=== PATIENT | female | born 1990 | race African-American/Black ===

== ENCOUNTER → 2016-03-24 | Outpatient (CLI) | payer OTHER ==
[2016-01-05 11:35] VITALS: BP 120/60
[~2016-03-24] MED LIST: ACET325T9 PO; CEPH-264 PO; METR500T PO; NITR100C62 PO; PNV11TAB5 PO
== END | disposition home or self-care (01) ==
LOC: SPEC 12:31
PROVIDERS: ATTEND Nurse Practitioner Women's Health
DX: Z36 Encounter for antenatal screening of mother (principal)
CPT/HCPCS: 36415

== ENCOUNTER → 2016-03-25 | Outpatient (CLI) | payer OTHER ==
[2016-01-05 11:35] VITALS: BP 120/60
--- NOTE | 2016-03-25 13:05 | KCIC ---
OB ultrasound Indication: Reason For Study Reason: size of fetus inconsistent with dates / Spl. Instructions: / History: Technique: Multiple real-time grayscale sonographic images were obtained over the pelvis. Findings: Amniotic fluid index is within normal limits measuring 13.4 centimeters. Cervix is within normal limits measuring 4.65 centimeters. There is a single intrauterine living fetus in the cephalic presentation with a heart rate of 160 beats per minute. Biparietal diameter measures 8.86 centimeters compatible with estimated gestational age 35 weeks 6 days. Head circumference measures 32.25 centimeters compatible with 36 weeks 3 days. Abdominal circumference measures 32.08 centimeters compatible with 36 weeks 0 days. Femur length measures 7.4 centimeters compatible with 37 weeks 6 days. Head circumference to abdominal circumference ratio is 1.01 which is within normal limits. Estimated weight is 2957 grams which is the 48th percentile. Estimated gestational age is 36 weeks 4 days with estimated date of delivery 04/18/2016. The placenta is right fundal with central cord insertion. The spine demonstrates normal morphology. The stomach, urinary bladder, and bilateral kidneys are identified. There are 2 upper and 2 lower extremities. A four-chamber heart is noted. Impression: Single intrauterine living fetus with estimated gestational age 36 weeks 4 days with estimated date of delivery 04/18/2016. Electronically signed by: Clarence Farnsworth (Mar 25, 2016 13:00:03)
== END | disposition home or self-care (01) ==
LOC: KCIC US 12:00
PROVIDERS: ATTEND Nurse Practitioner Women's Health
DX: O26.841 Uterine size-date discrepancy, first trimester (principal); Z3A.14 14 weeks gestation of pregnancy
CPT/HCPCS: 76805

== ENCOUNTER 2016-09-22 21:16 | Emergency (ER) | payer OTHER ==
[~2016-09-22] VITALS: Ht 162.6 cm; Wt 83.5 kg
[~2016-09-22 21:16] MED LIST changes: +DOCU-109 PO; +FERR325T72 PO; +IBUP-1060 PO
[2016-09-22] MEDS ORDERED: IPRATRPIUM/ALBUTEROL 0.5/2.5MG 3 ML NEBU. NEB ONE (23:00)
[2016-09-22] MEDS ORDERED: IV NORMAL SALINE 1000ML BAG 1,000 ML IV ONE (23:00)
[2016-09-22] MEDS ORDERED: diazePAM 5 MG TABLET PO ONE (23:00)
--- NOTE | 2016-09-22 23:13 | PHYS DOC ---
Past Medical History Past Medical History: Anxiety, Hypertension Past Surgical History: Other Additional Past Surgical Histo: I&D-BACK Alcohol Use: Occasionally Drug Use: None Adult General Chief Complaint Chief Complaint: SHORTNESS OF BREATH HPI HPI Patient is a 26 year old female with history of hypertension and anxiety presents today with multiple complaints. Patient is complaining of a 5 out of 10 generalized headache for the last 2 days. Patient is also complaining of nausea but no vomiting. Patient denies this being the worst headache in her life. She states she's had similar headaches before. Patient has taken Tylenol and ibuprofen with no relief. Patient is also complaining of shortness of breath that began this morning. She is a smoker. She is also on Depo shots. Patient is also complaining of right hand "shakiness" that has been going on and off throughout the day and worse this evening. Patient states she has anxiety but has never felt like this before. Patient denies any chest pain. Review of Systems Review of Systems Constitutional: Denies fever or chills [] Eyes: Denies change in visual acuity, redness, or eye pain [] HENT: Denies nasal congestion or sore throat [] Respiratory: shortness of breath [] Cardiovascular: No additional information not addressed in HPI [] GI: Denies abdominal pain, nausea, vomiting, bloody stools or diarrhea [] : Denies dysuria or hematuria [] Musculoskeletal: Denies back pain or joint pain [] Integument: Denies rash or skin lesions [] Neurologic: headache Endocrine: Denies polyuria or polydipsia [] pysch:shakiness Current Medications Current Medications Current Medications Medications (Trade) Dose Ordered Sig/Ruth Start Time Stop Time Status Last Admin Dose Admin Albuterol/ Ipratropium (Duoneb) 3 ml 1X ONCE 09/22/16 23:00 09/22/16 23:01 DC 09/22/16 23:59 3 ML Ceftriaxone Sodium 50 ml @ 100 mls/hr 1X ONCE 09/23/16 02:00 09/23/16 02:29 DC 09/23/16 02:04 100 MLS/HR Diazepam (Valium) 5 mg 1X ONCE 09/22/16 23:00 09/22/16 23:01 DC 09/23/16 00:00 5 MG Info (Do NOT chart on this entry -- for MONITORING) 1 each PRN DAILY PRN 09/23/16 01:30 09/25/16 01:29 Iohexol (Omnipaque 300 Mg/ml) 75 ml 1X ONCE 09/23/16 01:30 09/23/16 01:31 DC 09/23/16 01:50 75 ML Sodium Chloride 1,000 ml @ 1,000 mls/hr 1X ONCE 09/22/16 23:00 09/22/16 23:59 DC 09/23/16 00:01 1,000 MLS/HR Allergies Allergies Allergies Coded Allergies Type Severity Reaction Last Updated Verified No Known Drug Allergies 01/05/16 No Physical Exam Physical Exam Constitutional: Well developed, well nourished, no acute distress, non-toxic appearance. [] HENT: Normocephalic, atraumatic, bilateral external ears normal, oropharynx moist, no oral exudates, nose normal. [] Eyes: PERRLA, EOMI, conjunctiva normal, no discharge. [] Neck: Normal range of motion, no tenderness, supple, no stridor. [] Cardiovascular:Heart rate regular rhythm, no murmur [] Lungs & Thorax: Bilateral breath sounds clear to auscultation [] Abdomen: Bowel sounds normal, soft, no tenderness, no masses, no pulsatile masses. [] Skin: Warm, dry, no erythema, no rash. [] Back: No tenderness, no CVA tenderness. [] Extremities: No tenderness, no cyanosis, no clubbing, ROM intact, no edema. [] Neurologic: Alert and oriented X 3, normal motor function, normal sensory function, no focal deficits noted. Cranial nerves II-XII intact Psychologic: Affect normal, judgement normal, mood normal. Patient has tremors to the right upper extremity especially on holding items Current Patient Data Vital Signs Vital Signs Date Time Temp Pulse Resp B/P (MAP) Pulse Ox O2 Delivery O2 Flow Rate FiO2 09/23/16 00:30 79 18 123/83 (96) 100 Room Air 09/22/16 22:11 98.0 98.0 Lab Values Laboratory Tests Test 09/22/16 22:34 09/22/16 22:50 09/22/16 23:59 POC Urine HCG, Qualitative Hcg negative (Negative) Urine Collection Type Void Urine Color Yellow Urine Clarity Clear Urine pH 6.0 Urine Specific [place] 1.025 Urine Protein Negative mg/dL (NEG-TRACE) Urine Glucose (UA) Negative mg/dL (NEG) Urine Ketones (Stick) Negative mg/dL (NEG) Urine Blood Negative (NEG) Urine Nitrite Negative (NEG) Urine Bilirubin Negative (NEG) Urine Urobilinogen Dipstick 1.0 mg/dL (0.2 mg/dL) Urine Leukocyte Esterase Moderate (NEG) Urine RBC 0 /HPF (0-2) Urine WBC 1-4 /HPF (0-4) Urine Squamous Epithelial Cells Many /LPF Urine Bacteria Mod /HPF (0-FEW) Urine Mucus Marked /LPF Urine Opiates Screen Neg (NEG) Urine Methadone Screen Neg (NEG) Urine Barbiturates Neg (NEG) Urine Phencyclidine Screen Neg (NEG) Urine Amphetamine/Methamphetamine Neg (NEG) Urine Benzodiazepines Screen Neg (NEG) Urine Cocaine Screen Neg (NEG) Urine Cannabinoids Screen Neg (NEG) Urine Ethyl Alcohol Pos (NEG) White Blood Count 9.9 x10^3/uL (4.0-11.0) Red Blood Count 5.06 x10^6/uL (3.50-5.40) Hemoglobin 11.5 g/dL (12.0-15.5) L Hematocrit 36.4 % (36.0-47.0) Mean Corpuscular Volume 72 fL (79-100) L Mean Corpuscular Hemoglobin 23 pg (25-35) L Mean Corpuscular Hemoglobin Concent 32 g/dL (31-37) Red Cell Distribution Width 17.4 % (11.5-14.5) H Platelet Count 285 x10^3/uL (140-400) Neutrophils (%) (Auto) 35 % (31-73) Lymphocytes (%) (Auto) 57 % (24-48) H Monocytes (%) (Auto) 7 % (0-9) Eosinophils (%) (Auto) 1 % (0-3) Basophils (%) (Auto) 1 % (0-3) Neutrophils # (Auto) 3.5 x10^3uL (1.8-7.7) Lymphocytes # (Auto) 5.6 x10^3/uL (1.0-4.8) H Monocytes # (Auto) 0.7 x10^3/uL (0.0-1.1) Eosinophils # (Auto) 0.1 x10^3/uL (0.0-0.7) Basophils # (Auto) 0.1 x10^3/uL (0.0-0.2) Segmented Neutrophils % 34 % (35-66) L Lymphocytes % 61 % (24-48) H Monocytes % 4 % (0-10) Eosinophils % 1 % (0-5) Platelet Estimate Adequate (ADEQUATE) Hypochromasia Slight Poikilocytosis Slight Microcytosis Slight Prothrombin Time 12.5 SEC (11.7-14.0) Prothrombin Time INR 1.0 (0.8-1.1) PTT 26 SEC (24-38) D-Dimer (Grace) 1.56 ug/mlFEU (0.00-0.50) H Sodium Level 143 mmol/L (136-145) Potassium Level 3.8 mmol/L (3.5-5.1) Chloride Level 105 mmol/L (98-107) Carbon Dioxide Level 26 mmol/L (21-32) Anion Gap 12 (6-14) Blood Urea Nitrogen 13 mg/dL (7-20) Creatinine 0.9 mg/dL (0.6-1.0) Estimated GFR (Cockcroft-Gault) 92.3 Glucose Level 102 mg/dL (70-99) H Calcium Level 9.5 mg/dL (8.5-10.1) Magnesium Level 1.9 mg/dL (1.8-2.4) Creatine Kinase 164 U/L (26-192) Creatine Kinase MB (Mass) < 0.5 ng/mL (0.0-3.6) Creatine Kinase MB Relative Index % (0-4) Troponin I Quantitative < 0.017 ng/mL (0.000-0.055) DM-Euk-Y-Type Natriuretic Peptide 66 pg/mL (0-124) Ethyl Alcohol Level < 10 mg/dL (0-10) Laboratory Tests 09/22/16 23:59 Laboratory Tests 09/22/16 23:59 EKG EKG [] Radiology/Procedures Radiology/Procedures [] Course & Med Decision Making Course & Med Decision Making Pertinent Labs and Imaging studies reviewed. (See chart for details) This is a 26-year-old female patient who presents to the ED with with multiple complaints including shortness of breath, headache, tremors to the right upper extremity. CBC with no acute findings, BMP with no acute findings, troponin was normal, CK- MB is normal, drug screen is positive for alcohol, this could be the source of patient's tremors she did not tell us she has been drinking prior to coming to the ED, urine was positive for infection, patient was started on Rocephin. D- dimer was 1.56, CTA chest was ordered. 01:31 Care transferred to 26-year-old female presenting to the emergency department with shortness of breath and headache. Plan upon sign out to me at approximately 1:30 PM was to follow-up on CT angiography which was unremarkable. Of note the patient does not have an infiltrate on CT of the chest. She was subsequent discharged home to follow-up with her PCP in the next 2-3 days. Dragon Disclaimer Dragon Disclaimer This electronic medical record was generated, in whole or in part, using a voice recognition dictation system. Departure Departure Impression: Primary Impression: Urinary tract infection Additional Impression: ETOH abuse Disposition: 01 HOME, SELF-CARE Condition: STABLE Referrals: NO PCP (PCP) JOSE MANUEL GARCIA MD Patient Instructions: Shortness of Breath Additional Instructions: Thank you for allowing us to participate in your care today. Followup with your primary care physician in 3 days if your symptoms do not improve. Call your Primary Doctor tomorrow and inform them of your visit today. If you do not have a primary care provider you can ask for a list of our primary care providers. Return to the emergency department you have any new or concerning findings. This should be evaluated by the primary care physician and any necessary consulting services for continued management within a few days after discharge. Return to emergency room if you have any new or concerning symptoms including but not limited to fever, chills, nausea, vomiting, intractable pain, any new rashes, chest pain, shortness of air, uncontrolled bleeding, difficulty breathing, and/or vision loss. Problem Qualifiers Primary Impression: Urinary tract infection Urinary tract infection type: site unspecified Hematuria presence: without hematuria Qualified Codes: N39.0 - Urinary tract infection, site not specified BELINDA MOJICA APRN Sep 22, 2016 23:13 KEYUR MARIN MD Sep 23, 2016 03:18
--- NOTE | 2016-09-22 23:19 | RAD ---
CT HEAD PQRS STATEMENT: One or more of the following in the visualized dose reduction techniques were utilized for this study: 1. Automatic exposure control, 2. Adjustment of the mA and/or kV according to patient size, 3. Use of iterative reconstruction technique INDICATION: headache x2days, dizziness
hx of htn COMPARISON: None Available. TECHNIQUE: 5 mm contiguous axial images were obtained from the skull base to the vertex in both bone and soft tissue algorithm. FINDINGS: No abnormal attenuation within the brain parenchyma. No evidence of intracranial hemorrhage. No extra-axial fluid collections. No mass effect or midline shift. Ventricular size is appropriate. Basal cisterns are patent. No fractures identified.Frank-white differentiation is preserved.Globes and orbits are within normal limits. Paranasal sinuses and mastoid air cells are clear. IMPRESSION: No acute intracranial abnormality. Electronically signed by: Clarence Farnsworth MD (09/22/2016 11:16 PM) [facility]
[2016-09-22 23:35] LABS: BILIRUBIN,URINE NEGATIVE (NEG); GLUCOSE,URINE NEGATIVE (NEG); NITRITE,URINE NEGATIVE (NEG); PROTEIN,URINE NEGATIVE (NEG-TRACE)
[2016-09-22 23:40] LABS: BACTERIA,URINE MOD /HPF (0-FEW); RBC,URINE 0 /HPF (0-2); SQUAMOUS EPITHELIAL CELL,UR MANY /LPF
[2016-09-22 23:41] LABS: BARBITURATES NEG (NEG); BENZODIAZEPINES NEG (NEG); CANNABINOIDS NEG (NEG); COCAINE NEG (NEG); METHADONE NEG (NEG); OPIATES NEG (NEG); PHENCYCLIDINE NEG (NEG)
[2016-09-23 00:23] LABS: BASO # 0.1 x10^3/uL (0.0-0.2); BASO % 1 % (0-3); EOS % 1 % (0-3); HEMATOCRIT 36.4 % (36.0-47.0); HEMOGLOBIN 11.5 g/dL (12.0-15.5); LYMPH # 5.6 x10^3/uL (1.0-4.8); LYMPH % 57 % (24-48); MEAN CORPUSCULAR HEMOGLOBIN 23 pg (25-35); MEAN CORPUSCULAR HGB CONC 32 g/dL (31-37); MEAN CORPUSCULAR VOLUME 72 fL (79-100); MONO % 7 % (0-9); NEUT % 35 % (31-73); PLATELET COUNT 285 x10^3/uL (140-400); RED BLOOD COUNT 5.06 x10^6/uL (3.50-5.40); RED CELL DISTRIBUTION WIDTH 17.4 % (11.5-14.5); WHITE BLOOD COUNT 9.9 x10^3/uL (4.0-11.0)
[2016-09-23 00:36] LABS: PROTHROMBIN TIME PATIENT 12.5 SEC (11.7-14.0)
[2016-09-23 00:42] LABS: CALCIUM 9.5 mg/dL (8.5-10.1); CREATININE 0.9 mg/dL (0.6-1.0); GFR 92.3; MAGNESIUM 1.9 mg/dL (1.8-2.4); POTASSIUM 3.8 mmol/L (3.5-5.1)
[2016-09-23 01:00] LABS: CKMB MASS < 0.5 ng/mL (0.0-3.6); CREATINE KINASE 164 U/L (26-192)
[2016-09-23 01:11] LABS: % EOS 1 % (0-5); MICROCYTOSIS SLIGHT; PLT ESTIMATE ADEQUATE (ADEQUATE); POIKILOCYTOSIS SLIGHT
[2016-09-23 01:12] LABS: HYPOCHROMIA SLIGHT
[2016-09-23] MEDS ORDERED: CONTRAST GIVEN MC PRN (01:30)
[2016-09-23] MEDS ORDERED: IOHEXOL 300 MG/ML 75 ML VIAL IV ONE (01:30)
--- NOTE | 2016-09-23 03:10 | RAD ---
INDICATION: soa; Omni 300, 75ml COMPARISON: None. TECHNIQUE: Axial CT images obtained through the chest. Intravenous contrast utilized. Angiogram 3D images processed per protocol. One or more of the following individualized dose reduction techniques were utilized for this examination: 1. Automated exposure control; 2. Adjustment of the mA and/or kV according to patient size; 3. Use of iterative reconstruction technique. FINDINGS: No focal airspace consolidation. No evidence of pneumothorax. There is some mild regions of air trapping in the right lung. Could be from small airway disease. No evidence of thoracic aortic aneurysm. Ascending thoracic aorta poorly evaluated secondary to motion. Soft tissue density anterior mediastinum, commonly from residual thymus given patient's age. There are some enlarged lymph nodes in the bilateral axilla partially seen measuring up to about 11 mm short axis. No embolus in main, right main or left main pulmonary artery. Limited peripherally secondary to motion. IMPRESSION: 1. No central pulmonary embolus but limited peripherally secondary to motion. 2. Mildly enlarged lymph nodes in axilla bilaterally. Electronically signed by: Bernard Cardozo MD (09/23/2016 3:08 AM) [facility]
[2016-09-23 03:30] VITALS: BP 122/67
--- NOTE | 2016-09-23 06:25 | EKG ---
[facility] [address] [place] [address] Test Date: 2016-09-22 Test Time: 23:52:33 Pat Name: HARLEY ALVARENGA Department: Room: Gender: F Event Representative: : 1990 Requested By: BELINDA MOJICA Order Number: [id number] Reading MD: Korina Larson Measurements Intervals [place] Rate: 76 P: 37 AR: 180 QRS: 36 QRSD: 84 T: 38 QT: 362 QTc: 411 Interpretive Statements SINUS RHYTHM NORMAL ECG RI6.01 Unconfirmed report No previous ECG available for comparison Electronically Signed On 09-27-2016 15:12:52 CDT by Korina Larson
--- NOTE | 2016-09-23 07:47 | RAD ---
Portable chest, 09/22/2016: History: Shortness of breath The heart size and pulmonary vascularity are normal. No pulmonary infiltrates are seen. There is no evidence of pleural fluid. IMPRESSION: No acute cardiopulmonary abnormality is detected.
== END 2016-09-23 03:38 | disposition home or self-care (01) ==
LOC: ER 21:16
DX: N39.0 Urinary tract infection, site not specified (principal); F10.10 Alcohol abuse, uncomplicated; I10 Essential (primary) hypertension; F41.9 Anxiety disorder, unspecified; F17.200 Nicotine dependence, unspecified, uncomplicated
CPT/HCPCS: 36415; 70450; 71010; 71275; 80048; 80305; 80320; 81001; 81025; 82553; 83735; 83880; 84484; 85007; 85027; 85379; 85610; 85730; 93005; 94250; 94640; 96361; 96365; 99285; C1887; J0690; J7030; J7620; Q9967; G0480; G0481

== ENCOUNTER 2017-01-11 09:40 | Emergency (ER) | payer OTHER ==
[~2017-01-11] VITALS: Ht 162.6 cm; Wt 88.5 kg
[2017-01-11 09:47] VITALS: BP 147/95
[2017-01-11] MEDS ORDERED: FLUT9.9S NS (10:26)
[2017-01-11] MEDS ORDERED: PRED50TA PO (10:26)
[2017-01-11] MEDS ORDERED: AMOX1TAB61 PO (10:26)
[2017-01-11] MEDS ORDERED: IBUP-1060 PO (10:26)
--- NOTE | 2017-01-11 10:27 | PHYS DOC ---
Past Medical History Past Medical History: Anxiety, Hypertension Past Surgical History: Other Additional Past Surgical Histo: I&D-BACK Alcohol Use: Occasionally Drug Use: None Adult General Chief Complaint Chief Complaint: EARACHE/EAR PAIN HPI HPI Patient is a 26 year old female with history of anxiety and hypertension who presents with bilateral ear pain and sinus pressure that began one week ago. Patient denies any fever. Patient denies any coughing. Review of Systems Review of Systems Constitutional: See history of present illness Eyes: Denies change in visual acuity, redness, or eye pain [] HENT: Bilateral ear pain with sinus pressure, denies sore throat [] Respiratory: Denies cough or shortness of breath [] Cardiovascular: No additional information not addressed in HPI [] GI: Denies abdominal pain, nausea, vomiting, bloody stools or diarrhea [] : Denies dysuria or hematuria [] Musculoskeletal: Denies back pain or joint pain [] Integument: Denies rash or skin lesions [] Neurologic: Denies headache, focal weakness or sensory changes [] Allergies Allergies Allergies Coded Allergies Type Severity Reaction Last Updated Verified No Known Drug Allergies 01/05/16 No Physical Exam Physical Exam Constitutional: Well developed, well nourished, no acute distress, non-toxic appearance. [] HENT: Normocephalic, atraumatic, bilateral external ears normal, oropharynx moist, no oral exudates, Bilateral nasal turbinates are boggy and erythematous. Bilateral TM are mildly injected with small amount of cloudy fluid. Eyes: PERRLA, EOMI, conjunctiva normal, no discharge. [] Neck: Normal range of motion, no tenderness, supple, no stridor. [] Cardiovascular:Heart rate regular rhythm, no murmur [] Lungs & Thorax: Bilateral breath sounds clear to auscultation [] Abdomen: Bowel sounds normal, soft, no tenderness, no masses, no pulsatile masses. [] Skin: Warm, dry, no erythema, no rash. [] Back: No tenderness, no CVA tenderness. [] Extremities: No tenderness, no cyanosis, no clubbing, ROM intact, no edema. [] Neurologic: Alert and oriented X 3, normal motor function, normal sensory function, no focal deficits noted. [] Psychologic: Affect normal, judgement normal, mood normal. [] Current Patient Data Vital Signs Vital Signs Date Time Temp Pulse Resp B/P (MAP) Pulse Ox O2 Delivery O2 Flow Rate FiO2 01/11/17 09:47 97.5 92 16 98 Room Air 97.5 EKG EKG [] Radiology/Procedures Radiology/Procedures [] Course & Med Decision Making Course & Med Decision Making Pertinent Labs and Imaging studies reviewed. (See chart for details) Patient has otitis media and acute sinusitis. Discharged with Augmentin for 10 days. Discharged with Flonase as well as ibuprofen. Discharged with prednisone. Instructed to push fluids. Follow-up with her own doctor in 1-2 weeks. Dragon Disclaimer Dragon Disclaimer This electronic medical record was generated, in whole or in part, using a voice recognition dictation system. Departure Departure Impression: Primary Impression: Acute sinusitis Additional Impression: Otitis media Disposition: HOME, SELF-CARE Condition: STABLE Referrals: UNKNOWN PCP NAME (PCP) Follow-up with your doctor in one week Patient Instructions: Otitis Media, Adult, Sinusitis Additional Instructions: You were seen with symptoms consistent of a sinus infection and ear infection, ensure you complete your antibiotics. Take the rest of the prescribed medicines as ordered. Follow-up with your doctor in 1-2 weeks. Scripts Ibuprofen (IBUPROFEN) 800 Mg Tablet 800 MG PO PRN Q6HRS Y for INFLAMMATION, #20 TAB Prov: BELINDA MOJICA APRN 01/11/17 Prednisone (PREDNISONE) 50 Mg Tablet 1 TAB PO DAILY, #5 TAB Prov: BELINDA MOJICA STAFF MECHANICAL ENGINEER 01/11/17 Fluticasone Propionate (Flonase Allergy Relief) 9.9 Ml [place].susp 2 SPRAYS NS DAILY, #1 BOTTLE Prov: BELINDA MOJICA APRN 01/11/17 Amoxicillin/Potassium Clav (AUGMENTIN 875-125 TABLET) 1 Each Tablet 1 TAB PO BID, #20 TAB Prov: BELINDA MOJICA STAFF MECHANICAL ENGINEER 01/11/17 Problem Qualifiers Primary Impression: Acute sinusitis Sinusitis location: maxillary Recurrence: non-recurrent Qualified Codes: J01.00 - Acute maxillary sinusitis, unspecified Additional Impression: Otitis media Otitis media type: other nonsuppurative Chronicity: acute Laterality: bilateral Recurrence: not specified as recurrent Qualified Codes: H65.193 - Other acute nonsuppurative otitis media, bilateral BELINDA MOJICA APRN Jan 11, 2017 10:26
== END 2017-01-11 10:35 | disposition home or self-care (01) ==
LOC: ER 09:40
DX: H65.193 Other acute nonsuppurative otitis media, bilateral (principal); J01.00 Acute maxillary sinusitis, unspecified; I10 Essential (primary) hypertension
CPT/HCPCS: 99283

== ENCOUNTER 2018-07-22 20:23 | Emergency (ER) | payer OTHER ==
[~2018-07-22] VITALS: Ht 162.6 cm; Wt 97.5 kg
[~2018-07-22 20:23] MED LIST changes: +AMOX1TAB61 PO; +FLUT9.9S NS; +PRED50TA PO
[2018-07-22 20:37] VITALS: BP 150/72
[2018-07-22] MEDS ORDERED: PERM60CR12 TP (21:42)
--- NOTE | 2018-07-22 21:43 | PHYS DOC ---
Past Medical History Past Medical History: Anxiety, Hypertension Past Surgical History: Other Additional Past Surgical Histo: I&D-BACK Alcohol Use: Occasionally Drug Use: None Adult General Chief Complaint Chief Complaint: SKIN PROBLEM HPI HPI Patient is a 28 year old female who presents to the ED today stating she was exposed to scabies 3 days ago through her job. Patient states she has a rash on her left hand. She is in the ED with 3 children and requesting to be treated. Review of Systems Review of Systems Constitutional: Denies fever or chills [] Musculoskeletal: Denies back pain or joint pain [] Integument: Reports rash from scabies exposure Neurologic: Denies headache, focal weakness or sensory changes [] All other systems were reviewed and found to be within normal limits, except as documented in this note. Allergies Allergies Allergies Coded Allergies Type Severity Reaction Last Updated Verified No Known Drug Allergies 01/05/16 No Physical Exam Physical Exam Constitutional: Well developed, well nourished, no acute distress, non-toxic appearance. [] Skin: Warm, dry, no erythema, no rash noted on patient's hands Back: No tenderness, no CVA tenderness. [] Extremities: No tenderness, no cyanosis, no clubbing, ROM intact, no edema. [] Neurologic: Alert and oriented X 3, normal motor function, normal sensory function, no focal deficits noted. [] Psychologic: Affect normal, judgement normal, mood normal. [] Current Patient Data Vital Signs Vital Signs Date Time Temp Pulse Resp B/P (MAP) Pulse Ox O2 Delivery O2 Flow Rate FiO2 07/22/18 20:37 98.5 76 16 150/72 (98) 98 Room Air 98.5 EKG EKG [] Radiology/Procedures Radiology/Procedures [] Course & Med Decision Making Course & Med Decision Making Pertinent Labs and Imaging studies reviewed. (See chart for details) This is a 28-year-old female patient presenting to the ED today for scabies exposure. No rashes noted on physical exam, patient was still discharged on permethrin. Family members also given the same medication. Hygiene discussed. Allow up with PCP in 1-2 weeks as needed. Dragon Disclaimer Dragon Disclaimer This electronic medical record was generated, in whole or in part, using a voice recognition dictation system. Departure Departure Impression: Primary Impression: Scabies exposure Disposition: HOME, SELF-CARE Condition: STABLE Referrals: UNKNOWN PCP NAME (PCP) Follow-up with your doctor in 1-2 weeks Patient Instructions: Scabies Additional Instructions: You were evaluated in the emergency room after being exposed to scabies. Use the prescribed medications as ordered. Follow-up with your doctor in 1-2 weeks as needed. Maintain good hygiene at home. Scripts Permethrin (PERMETHRIN) 60 Gm Cream..g. 1 ADDIE TP ONCE, #60 GM 1 Refill Repeat application in 1 week Prov: BELINDA MOJICA APRN 07/22/18 BELINDA MOJICA APRN July 22, 2018 21:43
== END 2018-07-22 22:15 | disposition home or self-care (01) ==
LOC: ER 20:23
DX: Z20.7 Contact with and (suspected) exposure to pediculosis, acariasis and other infestations (principal); I10 Essential (primary) hypertension
CPT/HCPCS: 99283

== ENCOUNTER 2018-08-21 08:22 | Emergency (ER) | payer OTHER ==
[~2018-08-21] VITALS: Ht 162.6 cm; Wt 96.2 kg
[~2018-08-21 08:22] MED LIST changes: +PERM60CR12 TP
[2018-08-21 08:33] VITALS: BP 147/93
--- NOTE | 2018-08-21 09:14 | PHYS DOC ---
Past Medical History Past Medical History: No Pertinent History (ZINA POLO APRN) Alcohol Use: Occasionally Drug Use: None (ZINA POLO APRN) Adult General Chief Complaint Chief Complaint: SORE THROAT HPI HPI 28 y/o female presents to ER via POV for c/o sore throat since Wednesday-denies difficulty swallowing. Pt reports she has had bilateral ear pressure and pain as well. She denies other symptoms. She reports she took Robitussin with minimal re lief in sxs. She is currently on menses. She denies others in the family with similar illness. (ZINA POLO APRN) Review of Systems Review of Systems Constitutional: Denies fever or chills [] Eyes: Denies change in visual acuity, redness, or eye pain [] HENT: Denies nasal congestion. Reports sore throat w/throat swelling- denies difficulty swallowing Respiratory: Denies cough or shortness of breath [] Cardiovascular: No additional information not addressed in HPI [] GI: Denies abdominal pain, nausea, vomiting, bloody stools or diarrhea [] : Denies urinary sxs Musculoskeletal: Denies back/neck pain or joint pain [] Integument: Denies rash or skin lesions [] Neurologic: Denies headache, focal weakness or sensory changes [] All other systems were reviewed and found to be within normal limits, except as documented in this note. (ZINA POLO APRN) Current Medications Current Medications Current Medications Medications (Trade) Dose Ordered Sig/Ruth Start Time Stop Time Status Last Admin Dose Admin Ibuprofen (Motrin) 400 mg 1X ONCE 08/21/18 09:15 08/21/18 09:16 DC 08/21/18 09:15 400 MG Prednisone (Prednisone) 50 mg 1X ONCE 08/21/18 09:15 08/21/18 09:16 DC 08/21/18 09:14 50 MG (NAVEEN RUDOLPH MD) Allergies Allergies Allergies Coded Allergies Type Severity Reaction Last Updated Verified No Known Drug Allergies 08/21/18 No (NAVEEN RUDOLPH MD) Physical Exam Physical Exam Constitutional: Well developed, well nourished, no acute distress, non-toxic appearance. [] HENT: Normocephalic, atraumatic, bilateral ears normal, oropharynx moist- bilat. tonsillar swelling/erythema- uvula midline, no oral exudates, nose normal. [] Eyes: Pupils equal, conjunctiva normal, no discharge. [] Neck: Normal range of motion, tender on palp. bilat. tonsillar lymph nodes without adenopathy, supple, no stridor. [] Cardiovascular: Heart rate regular rhythm, no murmur [] Lungs & Thorax: Bilateral breath sounds clear to auscultation- resp. equal/nonlabored Skin: Warm, dry, no erythema, no rash. [] Back: No tenderness, full ROM Extremities: No tenderness, no cyanosis, no clubbing, ROM intact, no edema. [] Neurologic: Alert and oriented X 3, normal motor function, normal sensory function, no focal deficits noted. [] Psychologic: Affect normal, judgement normal, mood normal. [] (ZINA POLO APRN) Current Patient Data Vital Signs Vital Signs Date Time Temp Pulse Resp B/P (MAP) Pulse Ox O2 Delivery O2 Flow Rate FiO2 08/21/18 08:33 98.5 72 18 147/93 (111) 100 Room Air 98.5 (NAVEEN RUDOLPH MD) Lab Values Laboratory Tests Test 08/21/18 08:40 Group A Streptococcus Rapid Negative (NEGATIVE) (NAVEEN RUDOLPH MD) Lab Values Laboratory Tests Test 08/21/18 08:40 Group A Streptococcus Rapid Negative (NEGATIVE) (ZINA POLO APRN) EKG EKG [] (ZINA POLO APRN) Radiology/Procedures Radiology/Procedures [] (ZINA POLO APRN) Course & Med Decision Making Course & Med Decision Making Pertinent Labs reviewed. (See chart for details) Pt was evaluated in the ER for complaints of sore throat which started on Wednesday. Patient had negative strep test and this was discussed with her. D iscussed probable viral illness and symptomatic treatment at home. Education provided on signs and symptoms to return to ER. Discharge instructions were discussed. Patient to follow-up with primary care physician if symptoms persist or with any concerns. Patient was treated with dose of prednisone and ibuprofen and reports she has had improvement in her pain. She is denying any difficulty swallowing and is in no distress. (ZINA POLO APRN) Course & Med Decision Making Staff Physician Addendum: I was working in the ER during the course of this patient's visit. I was available for consultation as needed, but I was not directly involved in the care of this patient. (NAVEEN RUDOLPH MD) Dragon Disclaimer Dragon Disclaimer This electronic medical record was generated, in whole or in part, using a voice recognition dictation system. (ZINA POLO APRN) Departure Departure Impression: Primary Impression: Sore throat Additional Impression: Viral syndrome Disposition: 01 HOME, SELF-CARE Condition: STABLE Patient Instructions: Sore Throat, Viral Syndrome Additional Instructions: Tylenol and/or ibuprofen as needed for pain as directed on container. Drink plenty of fluids. Follow-up with your primary doctor if symptoms persist or with concerns. Scripts Prednisone (PREDNISONE) 50 Mg Tablet 1 TAB PO DAILY, #4 TAB 0 Refills Start 08/22/18 Prov: ZINA POLO APRN 08/21/18 Problem Qualifiers ZINA POLO APRN Aug 21, 2018 09:14 NAVEEN RUDOLPH MD Aug 21, 2018 17:43
[2018-08-21] MEDS ORDERED: predniSONE 10 MG TABLET PO ONE (09:15)
[2018-08-21] MEDS ORDERED: IBUPROFEN 400 MG TABLET. PO ONE (09:15)
[2018-08-21] MEDS ORDERED: PRED50TA PO (09:38)
--- NOTE | 2018-08-25 18:34 | VNOTE ---
CALL BACK NOTE CALL BACK Microbiology 08/21/18 Throat Culture - Final, Complete 08/21/18 - Final, Complete 08/21/18 - Final, Complete Positive strep culture, left voicemail. Attending Signature Attending Signature I have reviewed the PA/PEDIATRIC ORTHODONTIST's note and plan of care. I was available for consultation as needed. BELINDA MOJICA APRN Aug 25, 2018 18:34 JOSE MANUEL CRUZ DO Aug 26, 2018 03:39
== END 2018-08-21 09:42 | disposition home or self-care (01) ==
LOC: MERGE 08:22 → ER 08:22
DX: B34.9 Viral infection, unspecified (principal)
CPT/HCPCS: 87070; 87880; 99283; J7512

== ENCOUNTER 2020-04-08 09:10 | Emergency (ER) | payer OTHER ==
[~2020-04-08] VITALS: Ht 167.6 cm; Wt 104.4 kg
[2020-04-08 09:27] VITALS: BP 162/84
[2020-04-08 09:29] LABS: BILIRUBIN,URINE NEGATIVE (NEG); CLARITY,URINE CLOUDY; COLOR,URINE YELLOW; NITRITE,URINE NEGATIVE (NEG); PH,URINE 6.5 (<5.0-8.0); PROTEIN,URINE NEGATIVE (NEG-TRACE)
--- NOTE | 2020-04-08 09:45 | PHYS DOC ---
Past Medical History Past Medical History: Anxiety, Hypertension Additional Past Medical Histor: "pre diabetic" Past Surgical History: Other Additional Past Surgical Histo: I&D-BACK Smoking Status: Former Smoker Alcohol Use: Occasionally Drug Use: None General Adult EDM: Chief Complaint: ABDOMINAL PAIN HPI: HPI: Patient is a 30 year old female presents to the emergency department complainin g of intermittent stomach cramping for the past 3 to 4 weeks followed by loose stools. Patient denies watery diarrhea, denies abdominal pain, does report intermittent nausea. Patient states she has 3-4 large stools per day. Patient states she tried [id number] Imodium which seemed to help some, patient states she also tried eating saltine crackers which did not help. Patient denies any changes in eating habits, denies UTI type signs and symptoms, denies vaginal discharge, denies STI concerns. Patient reports her last menstrual cycle was 02/27/2020. Patient reports her home medications as a daily control pill. Patient states that she is supposed to take Metformin 500 mg twice daily and hydrochlorothiazide 25 mg daily but has not taken in several months because it makes her feel sick. Patient denies recent fever or chills, denies chest pains, denies shortness of breath, denies congestion. Review of Systems: Review of Systems: 14 body systems of review of systems have been reviewed. See HPI for pertinent positives and negative responses, otherwise all other systems are negative, nonpertinent or noncontributory. Heart Score: Risk Factors: Risk Factors: DM, Current or recent (<one month) smoker, HTN, HLP, family history of CAD, obesity. Risk Scores: Score 0 - 3: 2.5% MACE over next 6 weeks - Discharge Home Score 4 - 6: 20.3% MACE over next 6 weeks - Admit for Clinical Observation Score 7 - 10: 72.7% MACE over next 6 weeks - Early Invasive Strategies Allergies: Allergies: Allergies Coded Allergies Type Severity Reaction Last Updated Verified No Known Drug Allergies 01/05/16 No Physical Exam: PE: Constitutional: Well developed, well nourished, no acute distress, non-toxic appearance. HENT: Normocephalic, atraumatic, bilateral external ears normal, oropharynx moist, no oral exudates, nose normal. Eyes: PERRLA, EOMI, conjunctiva normal, no discharge. Neck: Normal range of motion, no tenderness, supple, no stridor. Cardiovascular:Heart rate regular rhythm, no murmur, heart sounds S1-S2 to auscultation. Lungs & Thorax: Bilateral breath sounds clear to auscultation all lung martinez. Abdomen: Bowel sounds normal, soft, no tenderness, no masses, no pulsatile masses. Skin: Warm, dry, no erythema, no rash. Back: No tenderness, no CVA tenderness. Extremities: No tenderness, no cyanosis, no clubbing, ROM intact, no edema. Neurologic: Alert and oriented X 3, normal motor function, normal sensory function, no focal deficits noted. Psychologic: Affect normal, judgement normal, mood normal. Current Patient Data: Labs: Laboratory Tests Test 04/08/20 09:26 POC Urine HCG, Qualitative Hcg positive (Negative) Vital Signs: Vital Signs Date Time Temp Pulse Resp B/P (MAP) Pulse Ox O2 Delivery O2 Flow Rate FiO2 04/08/20 09:27 96.8 78 16 162/84 (110) 98 Room Air 96.8 EKG: EKG: [] Radiology/Procedures: Radiology/Procedures: [] Course & Med Decision Making: Course & Med Decision Making Pertinent Labs and Imaging studies reviewed. (See chart for details) 30-year-old female, vital signs reviewed, complains of intermittent loose stools. Physical exam was unremarkable, ED plan urinalysis assay, urine test, CBC CMP. Patient's urine test was positive, urine assay results concerning for urinary tract infection. Discussed with patient urine findings, patient states that this would make her 4, para 3, patient had no problems with her previous pregnancies other than she was watched but not treated for hypertension by her OB. Patient currently denies any pain or discomfort, will add quantitative hCG to lab work, labs pending at this time. Patient glucose equals 95 on CMP, not concerning for Per glycemia, patient's hCG level 153,996, discussed with patient urinary tract infection concerns, will start on Keflex 500 mg 3 times daily x7 days, recommend taking an [id number] probiotic to help with loose stools, follow-up with COMPUTER SYSTEM TECHNICIAN soon. Patient gave verbal understanding of discharge home instructions, antibiotic instructions, follow-up with OB, return to ER concerns, discharged home. For will patient is 5 weeks 6 days. Nonconcerning for ectopic as patient is not experiencing any pain or discomfort. Dragon Disclaimer: Dragon Disclaimer: This electronic medical record was generated, in whole or in part, using a voice recognition dictation system. Departure Departure Impression: Primary Impression: Qualified Codes: Z3A.01 - Less than 8 weeks gestation of Additional Impressions: UTI (urinary tract infection) during Qualified Codes: O23.41 - Unspecified infection of urinary tract in , first trimester Loose stools Disposition: 01 DC HOME SELF CARE/HOMELESS Condition: GOOD Referrals: UNKNOWN PCP NAME (PCP) TYLER TAVAREZ MD Patient Instructions: ABCs of , - Urinary Tract Infection Additional Instructions: You are currently about 5 weeks 6 days , your beta hCG level is 153,996, like your COMPUTER SYSTEM TECHNICIAN know of this number that was drawn today , please take antibiotic as directed for your urinary tract infection, you may try an [id number]-[id number] probiotic to help with your loose stools, please follow-up with COMPUTER SYSTEM TECHNICIAN soon, return to the emergency department for worsening symptoms or other concerns. EMERGENCY DEPARTMENT GENERAL DISCHARGE INSTRUCTIONS Thank you for coming to [facility] Emergency Department (ED) today and trusting us with you care. We trust that you had a positive experience in our Emergency Department. If you wish to speak to the department management, you may call the Director at [phone]. YOUR FOLLOW UP INSTRUCTIONS ARE FOLLOWS: 1. Do you have a private Doctor? If you do not have a private doctor, please ask for a resource list of physicians or clinics that may be able to assist you with follow up care. 2. The Emergency Physicain has interpreted your x-rays. The X-Ray specialist will also review them. If there is a change in the findings, you will be notified in 48 hours when at all possible. 3. A lab test or culture has been done, your results will be reviewed and you will be notified if you need a change in treatment. ADDITIONAL INSTRUCTIONS AND INFORMATION: 1. Your care today has been supervised by a physician who is specially trained in emergency care. Many problems require more than one evaluation for a complete diagnosis and treatment. We recommend that you schedule your follow up appointment as recommended to ensure complete treatment of you illness or injury. If you are unable to obtain follow up care and continue to have a problem, or if your condition worsens, we recommend that you return to the ED. 2. We are not able to safely determine your condition over the phone nor are we able to give sound medical advice over the phone. For these safety reasons, if you call for medical advice we will ask you to come to the ED for further evaluation. 3. If you have any questions regarding these discharge instructions please call the ED at [phone]. SAFETY INFORMATION: In the interest of safety, wellness, and injury prevention; we encourage you to wear your sealbelt, if you smoke; quite smoking, and we encourage family to use a protective helmet for bicycling and other sporting events that present an increased risk for head injury. IF YOUR SYMPTOMS WORSEN OR NEW SYMPTOMS DEVELOP, OR YOU HAVE CONCERNS ABOUT YOUR CONDITION; OR IF YOUR CONDITION WORSENS WHILE YOU ARE WAITING FOR YOUR FOLLOW UP APPOINTMENT; EITHER CONTACT YOUR PRIMARY CARE DOCTOR, THE PHYSICIAN WHOSE NAME AND NUMBER YOU WERE GIVEN, OR RETURN TO THE ED IMMEDIATELY. Scripts Cephalexin (CEPHALEXIN) 500 Mg Tablet 1 TAB PO TID for UTI for 7 Days, #21 TAB 0 Refills Prov: JOSE MANUEL HERNANDEZ APRN 04/08/20 JOSE MANUEL HERNANDEZ APRN Apr 08, 2020 09:45
[2020-04-08 09:48] LABS: BACTERIA,URINE MODERATE /HPF (0-FEW); RBC,URINE 0 /HPF (0-2)
[2020-04-08 09:52] LABS: BASO # 0.1 x10^3/uL (0.0-0.2); BASO % 1 % (0-3); EOS % 0 % (0-3); HEMATOCRIT 34.7 % (36.0-47.0); LYMPH # 3.8 x10^3/uL (1.0-4.8); LYMPH % 43 % (24-48); MEAN CORPUSCULAR HEMOGLOBIN 23 pg (25-35); MEAN CORPUSCULAR HGB CONC 32 g/dL (31-37); MEAN CORPUSCULAR VOLUME 72 fL (79-100); MONO # 0.9 x10^3/uL (0.0-1.1); MONO % 10 % (0-9); NEUT # 4.2 x10^3/uL (1.8-7.7); NEUT % 47 % (31-73); PLATELET COUNT 319 x10^3/uL (140-400); RED BLOOD COUNT 4.85 x10^6/uL (3.50-5.40); RED CELL DISTRIBUTION WIDTH 16.3 % (11.5-14.5)
[2020-04-08 10:03] LABS: CALCIUM 9.3 mg/dL (8.5-10.1); CREATININE 0.8 mg/dL (0.6-1.0); GFR 102.6; POTASSIUM 3.6 mmol/L (3.5-5.1)
[2020-04-08 10:09] LABS: ALBUMIN/GLOBULIN RATIO 0.7 (1.0-1.7); TOTAL BILIRUBIN 0.2 mg/dL (0.2-1.0); TOTAL PROTEIN 7.5 g/dL (6.4-8.2)
[2020-04-08] MEDS ORDERED: CEPH500T PO (10:52)
[2020-04-08 12:27] LABS: ANISOCYTOSIS PRESENT; HYPOCHROMIA MOD; MICROCYTOSIS MOD; PLT ESTIMATE ADEQUATE (ADEQUATE)
== END 2020-04-08 11:01 | disposition home or self-care (01) ==
LOC: ER 09:10
DX: O23.41 Unspecified infection of urinary tract in pregnancy, first trimester (principal); R19.7 Diarrhea, unspecified; R10.9 Unspecified abdominal pain; F41.9 Anxiety disorder, unspecified; I10 Essential (primary) hypertension; F17.200 Nicotine dependence, unspecified, uncomplicated; Z98.890 Other specified postprocedural states; Z3A.01 Less than 8 weeks gestation of pregnancy
CPT/HCPCS: 36415; 80053; 81001; 81025; 84702; 85025; 87086; 99283